=== PATIENT | male | born 1925 | race Caucasian/White ===

== ENCOUNTER 2016-12-08 09:55 | Inpatient (IN) | payer MEDICARE, OTHER ==
[~2016-12-08] VITALS: Ht 170.2 cm; Wt 106.1 kg
[2016-12-08] VITALS (33 sets, daily range): BP systolic 10–140; BP diastolic 37–115
--- NOTE | 2016-12-08 10:07 | NUR ---
BIB [facility] FOR WEAKNESS. PATIENT IS AWAKE AND ALERT. PLACED ON A MONITOR. MD AT BEDSIDE FOR EVAL.
--- NOTE | 2016-12-08 10:13 | NUR ---
PT WAS SENT TO [facility] FROM [facility] WITHOUT PT'S HOME MEDICATION LIST. [facility] WAS CONTACTED BY DIANA BAIG TO PROVIDE PT'S HOME MEDICTION LIST. WAS UNABLE TO CONTACT [facility] NURSES. MESSAGE WAS LEFT WITH [facility] FAX NUMBER AND REQUEST TO FAX PT'S MEDICATION LIST.
[2016-12-08 10:30] LABS: BASOPHILS # (AUTO) 0.1 K/uL (0.0-8.0); BASOPHILS % (AUTO) 0.5 % (0.0-2.0); EOSINOPHILS % (AUTO) 0.2 % (0.0-7.0); HEMATOCRIT 39.4 % (40-50); HEMOGLOBIN 13.5 G/DL (14.0-18.0); LYMPHOCYTES # (AUTO) 0.9 K/UL (0.8-4.8); LYMPHOCYTES % (AUTO) 4.6 % (20.5-51.5); MEAN CORPUSCULAR HEMOGLOBIN 33.1 UUG (27.0-31.0); MEAN CORPUSCULAR HGB CONC 34 g/dL (32.0-37.0); MONOCYTES # (AUTO) 0.4 K/UL (0.1-1.30); NEUTROPHILS # (AUTO) 17.8 K/UL (1.8-8.9); NEUTROPHILS % (AUTO) 92.7 % (38.5-71.5); PLATELET COUNT (AUTO) 183 K/UL (150-450); RED BLOOD CELL COUNT(AUTO) 4.07 MIL/UL (4.7-6.1); WHITE BLOOD COUNT (AUTO) 19.2 K/UL (4.0-11.2)
[2016-12-08 10:41] LABS: CARBON DIOXIDE 32 mmol/L (21-32); CHLORIDE 95 mmol/L (98-107); CREATININE 1.2 mg/dL (0.6-1.3); GLUCOSE 114 mg/dL (74-106); POTASSIUM 4.6 mmol/L (3.5-5.1); UREA NITROGEN, BLOOD 23 mg/dL (7-18)
[2016-12-08 10:47] LABS: ALANINE AMINOTRANSFERASE 25 U/L (16-63); ALKALINE PHOSPHATASE 94 U/L (50-136); ASPARTATE AMINOTRANSFERASE 33 U/L (15-37); BILIRUBIN,DIRECT 0.2 mg/dL (0.0-0.2); BILIRUBIN,TOTAL 0.7 mg/dL (0.2-1.0)
[2016-12-08] MEDS ORDERED: ATEN25TA PO (11:06)
[2016-12-08] MEDS ORDERED: ASPI-605 PO (11:06)
[2016-12-08] MEDS ORDERED: [UNRECOGNIZED DRUG - CODE] PO (11:06)
[2016-12-08] MEDS ORDERED: GABA-534 PO (11:06)
[2016-12-08] MEDS ORDERED: BENA40TA2 PO (11:06)
[2016-12-08] MEDS ORDERED: LOVA10TA PO (11:06)
[2016-12-08] MEDS ORDERED: DOCU100T9 PO (11:06)
--- NOTE | 2016-12-08 11:31 | NUR ---
CLIENT SERVICE MANAGER STATES PATIENT WAS UNABLE TO COMPLETE CT SCAN. PATEINT WAS ALSO UNABLE TO PROVIDE URINE SAMPLE. NOTIFIED.
[2016-12-08] MEDS ORDERED: ASPIRIN 325 MG TABLET PO ONE (11:45)
[2016-12-08] MEDS ORDERED: ASPIRIN 81 MG TAB.CHEW ONE (12:02)
--- NOTE | 2016-12-08 12:16 | NUR ---
REPORT GIVEN TO HOMER RN. PT AND FAMILY AWARE OF PENDING ADMISSION.
[2016-12-08] MEDS ORDERED: ONDANSETRON IV *ER 4 MG/2 ML VIAL IV ONE (13:00)
[2016-12-08] MEDS ORDERED: HEPARIN/D5W DRIP 500 ML IV PRN (14:30)
[2016-12-08] MEDS ORDERED: ONDANSETRON 4 MG/2 ML VIAL IV PRN (14:30)
[2016-12-08] MEDS ORDERED: ACETAMINOPHEN 325 MG TABLET PO PRN (14:30)
[2016-12-08] MEDS ORDERED: NITROGLYCERIN 0.4 MG/TAB BOTTLE SL PRN (14:30)
[2016-12-08] MEDS ORDERED: MORPHINE SULFATE 2 MG/1 ML DISP.SYRIN IV PRN ×2 (14:30)
[2016-12-08] MEDS ORDERED: VANCOMYCIN IV 200 ML IV ONE (14:30)
[2016-12-08] MEDS ORDERED: LORAZEPAM 0.5 MG TABLET PO PRN (14:30)
--- NOTE | 2016-12-08 14:48 | NUR ---
Clinical Pharmacy Note: Vancomycin Pharmacy to Dose Subjective: To start vancomycin in this 89 y/o male for sepsis. Objective: height 60'' weight 185 lb BUN 23 Scr 1.2 Wbc 19.2 Temp 98 Assessment/Plan: Due to advanced age & elevated srcr, will dose by fall off level. Will give vancomycin 1250mg IVPB x1 today at 1530. Pharmacy shall check srcr in am & decide when to order next random level for further dosing. Will continue to follow.
[2016-12-08 15:30] LABS: BILIRUBIN,DIRECT 0.2 mg/dL (0.0-0.2); BILIRUBIN,TOTAL 0.7 mg/dL (0.2-1.0); TOTAL PROTEIN, SERUM 6.9 g/dL (6.4-8.2)
[2016-12-08] MEDS ORDERED: VANCOMYCIN IV 1,250 MG in IV DEXTROSE 5% 500 ML IV ONE (15:30)
--- NOTE | 2016-12-08 15:35 | NUR ---
a call to Dr. Avery and informed her of continuous low blood pressure orders for levophed received.
[2016-12-08] MEDS ORDERED: NOREPINEPHRINE BITARTRATE 8 MG in IV DEXTROSE 5% 500 ML IV PRN (15:45)
[2016-12-08] MEDS: PIPERACILLIN/TAZOBACTAM/D5W 3.375 G in PREMIXED 1 EACH IV SCH ×2 (15:51→21:22)
[2016-12-08 15:55] LABS: *BILIRUBIN,URIN NEGATIVE (NEGATIVE); *BLOOD, URINE 3+ (NEGATIVE); *CLARITY,URINE CLOUDY (CLEAR); *COLOR,URINE YELLOW (YELLOW); *KETONES,URINE NEGATIVE (NEGATIVE); *PROTEIN,URINE 1+ (NEGATIVE); *UROBILINOGEN,URINE 0.2 E.U./dl (NORMAL); LEUKOCYTE ESTERASE ,URINE 3+ (NEGATIVE); NITRITE, URINE POSITIVE (NEGATIVE); PH,URINE 7.5 (5.0-8.0); UGLUCOSE NEGATIVE (NEGATIVE)
--- NOTE | 2016-12-08 16:00 | NUR ---
Dr. Mancilla cardiology services in the unit to examine patient, orders to dcd heparin, and PICC line orders received.
[2016-12-08] MEDS: IV NS 1000 ML 1,000 ML IV PRN (16:24)
[2016-12-08 16:29] LABS: IRON, SERUM 25 ug/dL (50-175)
[2016-12-08 16:41] LABS: BACTERIA,URINE MANY /HPF (NONE SEEN); RBC,URINE 20-50 /HPF (0-3); SQUAMOUS EPITHELIAL CELL,UR FEW /HPF (NONE SEEN); WBC,URINE 20-50 /HPF (0-3)
[2016-12-08 16:42] LABS: MUCUS,URINE MODERATE /LPF (0-FEW)
[2016-12-08] MEDS: DOCUSATE SODIUM 100 MG CAPSULE PO SCH (17:00)
[2016-12-08] MEDS: GABAPENTIN 300 MG CAPSULE PO SCH (17:00)
[2016-12-08] MEDS ORDERED: IV NORMAL SALINE 500 ML IV ONE (18:15)
--- NOTE | 2016-12-08 19:00 | NUR ---
patient daughter Florina at bedside visiting patient updated with patient status ,condition and plan of care and treatment.daughters questions answered.hospital telephone number given to daughter .
--- NOTE | 2016-12-08 20:00 | NUR ---
patient in bed alert to name verbally responsive and able to follow simple commands . patient alert x2 patient denies chest pain .able to moved upper and lower extremities but very weak.norepinephrine drip in progress to keep sbp >90 mm/hg .tolerating oxygen via nasal cannula at 2 liters /min .no sob noted. Moses to bedside drain with clear yellowish urine.continue to monitor vitals and levels of comfort.
--- NOTE | 2016-12-08 20:25 | NUR ---
called patients daughter and spoked with Florina porras obtained phone consent for picc line insertion .notified nursing electric motor repair supervisor and picc line nurse is coming between 2300 to 0000.
[2016-12-08] MEDS: CALCIUM CARB/VITAMIN D 600-400 MG TABLET PO SCH (21:00)
--- NOTE | 2016-12-08 21:00 | NUR ---
patient turned and reposition but refusing, advised appropriately.skin care provided. Addendum: 12/08/16 at 2308 by DONOVAN KELLER RN Amended: Links added.
[2016-12-08] MEDS: Z GUARD REMEDY PASTE 57 GM TUBE TOP SCH (21:25)
[2016-12-08] MEDS: SIMVASTATIN 20 MG TABLET PO SCH (21:25)
--- NOTE | 2016-12-08 22:00 | NUR ---
levophed drip titrated accordingly to keep sbp >90 mm/hg. Addendum: 12/08/16 at 2300 by DONOVAN KELLER RN Amended: Links added.
--- NOTE | 2016-12-08 23:03 | NUR ---
still awaiting for PICC insertion as per supervisor tower picc line nurse is coming between 2300 to 0000. Addendum: 12/08/16 at 2304 by DONOVAN KELLER RN Amended: Links added.
--- NOTE | 2016-12-08 23:50 | NUR ---
ESTEBAN BARROS RN at beside inserted right upper extremity picc line 3 lumen ivf access .
[2016-12-09] VITALS (47 sets, daily range): BP systolic 91–169; BP diastolic 33–94
--- NOTE | 2016-12-09 | NUR ---
turned and reposition patient ,explained the importance of turning for skin breakdown prevention. Addendum: 12/09/16 at 0038 by DONOVAN KELLER RN Amended: Links added.
--- NOTE | 2016-12-09 00:15 | NUR ---
pt verbalized he was hungry and want something to eat .patient able to swallow tolerated chocolate pudding .aspiration precaution observed head of the head up . Addendum: 12/09/16 at 0038 by DONOVAN KELLER RN Amended: Links added.
[2016-12-09] MEDS: IV NS 1000 ML 1,000 ML IV PRN ×2 (03:40→14:18)
[2016-12-09 05:01] LABS: BASOPHILS % (AUTO) 0.1 % (0.0-2.0); EOSINOPHILS % (AUTO) 0.1 % (0.0-7.0); HEMATOCRIT 30.8 % (40-50); HEMOGLOBIN 10.8 G/DL (14.0-18.0); LYMPHOCYTES # (AUTO) 0.8 K/UL (0.8-4.8); MEAN CORPUSCULAR HEMOGLOBIN 33.9 UUG (27.0-31.0); MEAN CORPUSCULAR HGB CONC 35 g/dL (32.0-37.0); MEAN CORPUSCULAR VOLUME 96.6 FL (82.0-92.0); MONOCYTES # (AUTO) 0.7 K/UL (0.1-1.30); MONOCYTES % (AUTO) 4.1 % (0.0-11.0); NEUTROPHILS # (AUTO) 14.6 K/UL (1.8-8.9); NEUTROPHILS % (AUTO) 90.7 % (38.5-71.5); PLATELET COUNT (AUTO) 153 K/UL (150-450); RED BLOOD CELL COUNT(AUTO) 3.19 MIL/UL (4.7-6.1); WHITE BLOOD COUNT (AUTO) 16.1 K/UL (4.0-11.2)
[2016-12-09] MEDS: PIPERACILLIN/TAZOBACTAM/D5W 3.375 G in PREMIXED 1 EACH IV SCH ×3 (05:09→22:25)
[2016-12-09 05:25] LABS: AMYLASE 51 U/L (25-115); CARBON DIOXIDE 31 mmol/L (21-32); CHLORIDE 98 mmol/L (98-107); CHOLESTEROL 133 mg/dL (<200); CREATININE 1.3 mg/dL (0.6-1.3); GLUCOSE 114 mg/dL (74-106); HDL CHOLESTEROL 69 mg/dL (40-60); MAGNESIUM 1.7 mg/dL (1.8-2.4); PHOSPHOROUS 3.6 mg/dL (2.5-4.9); POTASSIUM 4.2 mmol/L (3.5-5.1); TRIGLYCERIDES 41 MG/DL (30-150); UREA NITROGEN, BLOOD 21 mg/dL (7-18)
[2016-12-09 05:26] LABS: LIPASE 73 U/L (73-393)
--- NOTE | 2016-12-09 05:30 | NUR ---
am care done ,changed soiled linens and gown ,skin care done ,Moses care and oral care done .turned and reposition . hob up .elevated upper and lower bilateral extremities with pillow .off loaded bilateral heels ,scds used .
--- NOTE | 2016-12-09 06:20 | NUR ---
po medication given and patient tolerated medication with water .
[2016-12-09] MEDS: PANTOPRAZOLE SODIUM 40 MG TABLET.DR PO SCH (06:23)
[2016-12-09] MEDS: GABAPENTIN 300 MG CAPSULE PO SCH ×3 (08:50→16:54)
[2016-12-09] MEDS: DOCUSATE SODIUM 100 MG CAPSULE PO SCH ×4 (08:51→16:55)
[2016-12-09] MEDS: ASPIRIN EC 81 MG TABLET.DR PO SCH (08:51)
[2016-12-09] MEDS: Z GUARD REMEDY PASTE 57 GM TUBE TOP SCH ×2 (08:52→20:21)
[2016-12-09] MEDS: CALCIUM CARB/VITAMIN D 600-400 MG TABLET PO SCH ×2 (09:02→20:19)
--- NOTE | 2016-12-09 09:05 | NUR ---
Dr. Avery in the unit to examine patient, report given see orders.
[2016-12-09] MEDS: MAGNESIUM SULFATE/D5W 100 ML IV SCH ×2 (12:34→13:53)
--- NOTE | 2016-12-09 17:15 | NUR ---
Clinical Pharmacy Note: Vancomycin Pharmacy to Dose Subjective: To start vancomycin in this 89 y/o male for sepsis. Objective: height 60'' weight 185 lb BUN 21 Scr 1.3 Wbc 16.1 Temp 99.2 random: 6.5 (taken at 1400, result delayed d/t machine malfunction, sent out to [facility] for result) Assessment/Plan: Due to advanced age & elevated srcr, will continue to dose by fall off level. Will give vancomycin 1250mg IVPB x1 today at 1730. Pharmacy shall check srcr in am & decide when to order next random level for further dosing. Will continue to follow.
[2016-12-09] MEDS ORDERED: VANCOMYCIN IV 1,250 MG in IV DEXTROSE 5% 500 ML IV ONE (17:30)
--- NOTE | 2016-12-09 20:00 | NUR ---
received patient in bed alert oriented x2 needs reorientation .off oxygen no respiratory distress noted breathing even and unlabored .denies pain and no discomfort .hob up.patient off norepinephrine drip continue to monitor vital and levels of comfort . Moses patent and to bedside drain with adequate yellowish urine .call zuleta placed with in reach and advised to call for assistance . Addendum: 12/09/16 at 2140 by DONOVAN KELLER RN Amended: Links added.
--- NOTE | 2016-12-09 20:00 | NUR ---
on room air no respiratory distress noted no sob. Addendum: 12/10/16 at 0201 by DONOVAN KELLER RN Amended: Links added.
--- NOTE | 2016-12-09 20:05 | NUR ---
DR: AIME came and visited patient updated with patient status and condition .MD made aware patient is off norepinephrine drip with orders for prn hydralazine for SBP >160 mm/hg .
[2016-12-09] MEDS ORDERED: hydrALAZINE HCL 20 MG/1 ML VIAL IV PRN (20:15)
[2016-12-09] MEDS: SIMVASTATIN 20 MG TABLET PO SCH (20:20)
--- NOTE | 2016-12-09 20:30 | NUR ---
pm care done . patient had x1 bowel movement soft moderate in amount brownish in color . send stool for OB .perineal care done and z guard applied to sacral area .changed soiled linens .turned and reposition .elelvayed bilateral upper and lower extremities with pillows .
[2016-12-09] MEDS: BENZOCAINE/MENTH/CETYLPYRD LOZENGE MM PRN (20:51)
[2016-12-09 21:33] LABS: *OCCULT BLOOD STOOL NEGATIVE (NEGATIVE)
--- NOTE | 2016-12-09 22:00 | NUR ---
patient off norepinephrine drip continue to monitor vital signs . Addendum: 12/09/16 at 2326 by DONOVAN KELLER RN Amended: Links added.
--- NOTE | 2016-12-09 22:00 | NUR ---
patient able to swallow medication with water . aspiration precaution observed . Addendum: 12/10/16 at 0200 by DONOVAN KELLER RN Amended: Links added. Addendum: 12/10/16 at 0201 by DONOVAN KELLER RN Amended: Links added.
--- NOTE | 2016-12-09 23:00 | NUR ---
afebrimanan ,continue with antibiotic vancomycin and Zosyn see emar. Addendum: 12/09/16 at 5168 by DONOVAN KELLER RN Amended: Links added.
[2016-12-10] VITALS (23 sets, daily range): BP systolic 117–160; BP diastolic 41–133
[2016-12-10] MEDS: BENZOCAINE/MENTH/CETYLPYRD LOZENGE MM PRN ×4 (01:12→22:42)
[2016-12-10] MEDS: IV NS 1000 ML 1,000 ML IV PRN (02:28)
[2016-12-10 05:12] LABS: BASOPHILS # (AUTO) 0.2 K/uL (0.0-8.0); BASOPHILS % (AUTO) 2.7 % (0.0-2.0); EOSINOPHILS # (AUTO) 0.1 K/uL (0.0-0.7); EOSINOPHILS % (AUTO) 1.6 % (0.0-7.0); HEMOGLOBIN 10.6 G/DL (14.0-18.0); LYMPHOCYTES # (AUTO) 1.2 K/UL (0.8-4.8); LYMPHOCYTES % (AUTO) 16.3 % (20.5-51.5); MEAN CORPUSCULAR HEMOGLOBIN 32.9 UUG (27.0-31.0); MEAN CORPUSCULAR HGB CONC 34 g/dL (32.0-37.0); MEAN CORPUSCULAR VOLUME 96.4 FL (82.0-92.0); MONOCYTES # (AUTO) 0.6 K/UL (0.1-1.30); NEUTROPHILS # (AUTO) 5.1 K/UL (1.8-8.9); NEUTROPHILS % (AUTO) 71.4 % (38.5-71.5); PLATELET COUNT (AUTO) 122 K/UL (150-450); RED BLOOD CELL COUNT(AUTO) 3.21 MIL/UL (4.7-6.1); WHITE BLOOD COUNT (AUTO) 7.2 K/UL (4.0-11.2)
[2016-12-10] MEDS: PIPERACILLIN/TAZOBACTAM/D5W 3.375 G in PREMIXED 1 EACH IV SCH ×3 (05:17→22:03)
[2016-12-10 05:37] LABS: MAGNESIUM 1.9 mg/dL (1.8-2.4); PHOSPHOROUS 3.5 mg/dL (2.5-4.9)
[2016-12-10] MEDS: PANTOPRAZOLE SODIUM 40 MG TABLET.DR PO SCH (06:41)
[2016-12-10] MEDS: GABAPENTIN 300 MG CAPSULE PO SCH ×3 (09:34→19:45)
[2016-12-10] MEDS: DOCUSATE SODIUM 100 MG CAPSULE PO SCH ×3 (09:34→19:45)
[2016-12-10] MEDS: ASPIRIN EC 81 MG TABLET.DR PO SCH (09:34)
[2016-12-10] MEDS: CALCIUM CARB/VITAMIN D 600-400 MG TABLET PO SCH ×2 (09:35→23:02)
[2016-12-10] MEDS: Z GUARD REMEDY PASTE 57 GM TUBE TOP SCH ×2 (09:36→22:02)
[2016-12-10] MEDS ORDERED: VANCOMYCIN IV 1,500 MG in IV DEXTROSE 5% 500 ML IV ONE (13:00)
--- NOTE | 2016-12-10 16:46 | NUR ---
Clinical Pharmacy Note: Vancomycin Pharmacy to Dose Subjective: To continue vancomycin in this 89 y/o male for sepsis. Objective: height 60'' weight 185 lb BUN 21(12/09) Scr 1.3(12/09) Wbc 7.2 Temp 98.3 random: 13.4 (ordered today on am labs Assessment/Plan: Due to advanced age & elevated srcr, will continue to dose by fall off level. Will give vancomycin 1250mg IVPB x1 today (given at 1300)and draw random in am (ordered for tomorrow a 0600). Will continue to follow.
[2016-12-10] MEDS: CARVEDILOL 3.125 MG TABLET PO SCH (19:45)
[2016-12-10] MEDS: LACTOBACILLUS RHAMNOSUS GG 1 EACH CAPSULE PO SCH (22:02)
[2016-12-10] MEDS: SIMVASTATIN 20 MG TABLET PO SCH (22:02)
[2016-12-10] MEDS ORDERED: CALCIUM CARB/VITAMIN D 600-400 MG TABLET ONE (23:02)
[2016-12-11] VITALS (19 sets, daily range): BP systolic 100–164; BP diastolic 60–93
[2016-12-11] MEDS: IV NS 1000 ML 1,000 ML IV PRN (02:22)
[2016-12-11 05:11] LABS: BASOPHILS % (AUTO) 0.3 % (0.0-2.0); EOSINOPHILS # (AUTO) 0.2 K/uL (0.0-0.7); EOSINOPHILS % (AUTO) 2.1 % (0.0-7.0); HEMATOCRIT 34.3 % (40-50); HEMOGLOBIN 11.7 G/DL (14.0-18.0); LYMPHOCYTES # (AUTO) 1.6 K/UL (0.8-4.8); LYMPHOCYTES % (AUTO) 17.8 % (20.5-51.5); MEAN CORPUSCULAR HEMOGLOBIN 32.7 UUG (27.0-31.0); MEAN CORPUSCULAR HGB CONC 34 g/dL (32.0-37.0); MEAN CORPUSCULAR VOLUME 96.3 FL (82.0-92.0); MONOCYTES # (AUTO) 0.6 K/UL (0.1-1.30); MONOCYTES % (AUTO) 6.5 % (0.0-11.0); NEUTROPHILS # (AUTO) 6.5 K/UL (1.8-8.9); NEUTROPHILS % (AUTO) 73.3 % (38.5-71.5); PLATELET COUNT (AUTO) 139 K/UL (150-450); RED BLOOD CELL COUNT(AUTO) 3.56 MIL/UL (4.7-6.1); WHITE BLOOD COUNT (AUTO) 8.9 K/UL (4.0-11.2)
[2016-12-11 05:23] LABS: CARBON DIOXIDE 29 mmol/L (21-32); CHLORIDE 101 mmol/L (98-107); CREATININE 1.2 mg/dL (0.6-1.3); GLUCOSE 103 mg/dL (74-106); MAGNESIUM 1.7 mg/dL (1.8-2.4); PHOSPHOROUS 3.3 mg/dL (2.5-4.9); UREA NITROGEN, BLOOD 14 mg/dL (7-18)
[2016-12-11] MEDS: PIPERACILLIN/TAZOBACTAM/D5W 3.375 G in PREMIXED 1 EACH IV SCH ×3 (06:23→21:32)
[2016-12-11] MEDS: PANTOPRAZOLE SODIUM 40 MG TABLET.DR PO SCH (06:23)
--- NOTE | 2016-12-11 08:00 | NUR ---
Pt. was assisted with eating breakfast,watching TV,no s/s of acute distress.
[2016-12-11] MEDS: ASPIRIN EC 81 MG TABLET.DR PO SCH (08:41)
[2016-12-11] MEDS: LACTOBACILLUS RHAMNOSUS GG 1 EACH CAPSULE PO SCH ×2 (08:41→21:31)
[2016-12-11] MEDS: BENAZEPRIL HCL 5 MG TABLET PO SCH (08:42)
[2016-12-11] MEDS: DOCUSATE SODIUM 100 MG CAPSULE PO SCH ×3 (08:42→18:01)
[2016-12-11] MEDS: GABAPENTIN 300 MG CAPSULE PO SCH ×3 (08:42→18:01)
[2016-12-11] MEDS: Z GUARD REMEDY PASTE 57 GM TUBE TOP SCH ×2 (08:43→21:31)
[2016-12-11] MEDS: CARVEDILOL 3.125 MG TABLET PO SCH ×2 (08:45→18:10)
[2016-12-11] MEDS: CALCIUM CARB/VITAMIN D 600-400 MG TABLET PO SCH ×2 (08:50→21:31)
[2016-12-11] MEDS ORDERED: VANCOMYCIN IV 1,500 MG in IV DEXTROSE 5% 500 ML IV ONE (10:00)
--- NOTE | 2016-12-11 11:15 | NUR ---
Pt.was seen by Gena Klein with new orders.
[2016-12-11] MEDS: MAGNESIUM SULFATE/D5W 100 ML IV SCH ×2 (12:43→13:22)
--- NOTE | 2016-12-11 13:00 | NUR ---
Pt. sleeping,no s/s of distress.
--- NOTE | 2016-12-11 13:49 | NUR ---
Clinical Pharmacy Note: Vancomycin Pharmacy to Dose Subjective: To continue vancomycin in this 89 y/o male for sepsis. Objective: height 60'' weight 185 lb BUN 14 Scr 1.2 Wbc 8.9 Temp 99.1 random: 15.8 (ordered today on am labs) Assessment/Plan: Due to advanced age & elevated srcr, will continue to dose by fall off level. Gave vancomycin 1500mg IVPB x1 today at 1000 based on random and draw random in am (ordered for tomorrow a 0600). Will continue to follow.
--- NOTE | 2016-12-11 16:00 | NUR ---
Family members at bedside,updated with pt.condition and plan of care.
--- NOTE | 2016-12-11 16:45 | NUR ---
SBAR report given to Benjy/RN,pt.was tx to TELE under soaking room operator,no s/s of distress or SOB,denies any pain @ time.
--- NOTE | 2016-12-11 17:00 | NUR ---
Report received from Compa in CCU patient was transferred to room 204, air mattress set up, all needs met. No evidence of distress noted, bed in low position side rails up x2, SCD's on.
[2016-12-11] MEDS: SIMVASTATIN 20 MG TABLET PO SCH (21:31)
[2016-12-12] VITALS: BP 112/60
[2016-12-12 04:00] VITALS: BP 124/69
[2016-12-12] MEDS: PIPERACILLIN/TAZOBACTAM/D5W 3.375 G in PREMIXED 1 EACH IV SCH ×2 (05:46→13:22)
[2016-12-12 06:43] LABS: BASOPHILS % (AUTO) 0.4 % (0.0-2.0); EOSINOPHILS # (AUTO) 0.3 K/uL (0.0-0.7); EOSINOPHILS % (AUTO) 4.4 % (0.0-7.0); HEMATOCRIT 33.7 % (40-50); HEMOGLOBIN 11.3 G/DL (14.0-18.0); LYMPHOCYTES # (AUTO) 1.6 K/UL (0.8-4.8); LYMPHOCYTES % (AUTO) 23.3 % (20.5-51.5); MEAN CORPUSCULAR HEMOGLOBIN 32.4 UUG (27.0-31.0); MEAN CORPUSCULAR HGB CONC 33 g/dL (32.0-37.0); MONOCYTES # (AUTO) 0.6 K/UL (0.1-1.30); MONOCYTES % (AUTO) 9.4 % (0.0-11.0); NEUTROPHILS # (AUTO) 4.4 K/UL (1.8-8.9); NEUTROPHILS % (AUTO) 62.5 % (38.5-71.5); PLATELET COUNT (AUTO) 136 K/UL (150-450); RED BLOOD CELL COUNT(AUTO) 3.47 MIL/UL (4.7-6.1); WHITE BLOOD COUNT (AUTO) 6.9 K/UL (4.0-11.2)
[2016-12-12] MEDS: PANTOPRAZOLE SODIUM 40 MG TABLET.DR PO SCH (06:57)
[2016-12-12 07:26] LABS: CARBON DIOXIDE 32 mmol/L (21-32); CHLORIDE 97 mmol/L (98-107); CREATININE 1.2 mg/dL (0.6-1.3); GLUCOSE 95 mg/dL (74-106); PHOSPHOROUS 3.4 mg/dL (2.5-4.9); POTASSIUM 3.6 mmol/L (3.5-5.1); UREA NITROGEN, BLOOD 14 mg/dL (7-18)
--- NOTE | 2016-12-12 08:00 | NUR ---
awake, oriented x 2, cooperative, denies of pain at this time, no shortness of breath noted, tele SR, call light within reach, explained plan of care- verbalized understanding, on first step mattress, repositioned for breakfast, bed alarm on
[2016-12-12] MEDS: BENAZEPRIL HCL 5 MG TABLET PO SCH (08:04)
[2016-12-12] MEDS: ASPIRIN EC 81 MG TABLET.DR PO SCH (08:04)
[2016-12-12] MEDS: CALCIUM CARB/VITAMIN D 600-400 MG TABLET PO SCH (08:04)
[2016-12-12] MEDS: CARVEDILOL 3.125 MG TABLET PO SCH (08:04)
[2016-12-12] MEDS: DOCUSATE SODIUM 100 MG CAPSULE PO SCH ×2 (08:04→13:22)
[2016-12-12] MEDS: LACTOBACILLUS RHAMNOSUS GG 1 EACH CAPSULE PO SCH (08:06)
[2016-12-12] MEDS: Z GUARD REMEDY PASTE 57 GM TUBE TOP SCH (08:10)
[2016-12-12] MEDS: GABAPENTIN 300 MG CAPSULE PO SCH ×2 (08:11→13:22)
--- NOTE | 2016-12-12 10:00 | NUR ---
seen by Dr Jeff dumont order for d/c snf
[2016-12-12] MEDS ORDERED: BENA5TAB2 PO (10:05)
[2016-12-12] MEDS ORDERED: Benzocaine/Menth/Cetylpyrd Cl MM (10:05)
[2016-12-12] MEDS ORDERED: CARV3.122 PO (10:05)
[2016-12-12] MEDS ORDERED: DOCU100C36 PO (10:05)
[2016-12-12] MEDS ORDERED: LEVO750T21 PO (10:05)
[2016-12-12] MEDS ORDERED: VANCOMYCIN IV 1,500 MG in IV DEXTROSE 5% 500 ML IV ONE (10:30)
[2016-12-12 11:51] VITALS: BP 137/72
--- NOTE | 2016-12-12 12:00 | NUR ---
daughter here- pt would like to go to [facility] instead- daughter spoke to and will go to [facility]
--- NOTE | 2016-12-12 13:45 | NUR ---
discharge instructions given- verbalized understanding- pt will be picked up by the [facility] transportation vehicle- pt aware
--- NOTE | 2016-12-12 14:10 | NUR ---
PICC line on the right upper arm d/cd aseptically, catheter and tip intact, no redness/swelling on site, pressure dsg applied Addendum: 12/12/16 at 1613 by ABELINO FROST RN 1410- length at 40
--- NOTE | 2016-12-12 15:00 | NUR ---
daughter here- transportation from [place] here- assisted to w/c and escorted to van in stable condition, all belongings with him
== END 2016-12-12 15:00 | DRG 871 ==
LOC: ER 09:55 → TELE 13:30 → CCU 14:30 → TELE 12-11 16:50 → MED 12-12 11:25
PROVIDERS: ADMIT Internal Medicine; ATTEND Internal Medicine
PROC: 02HV33Z Insertion of Infusion Device into Superior Vena Cava, Percutaneous Approach (ICD-10-PCS; principal; 2016-12-08)
PROC: B548ZZA Ultrasonography of Superior Vena Cava, Guidance (ICD-10-PCS; 2016-12-08)
DX: A41.9 Sepsis, unspecified organism (principal); I21.4 Non-ST elevation (NSTEMI) myocardial infarction; J69.0 Pneumonitis due to inhalation of food and vomit; R65.21 Severe sepsis with septic shock; G93.41 Metabolic encephalopathy; D68.59 Other primary thrombophilia; I95.9 Hypotension, unspecified; E87.1 Hypo-osmolality and hyponatremia; R53.2 Functional quadriplegia; I50.22 Chronic systolic (congestive) heart failure; E44.0 Moderate protein-calorie malnutrition; N39.0 Urinary tract infection, site not specified; I11.0 Hypertensive heart disease with heart failure; E78.5 Hyperlipidemia, unspecified; I25.10 Atherosclerotic heart disease of native coronary artery without angina pectoris; F03.90 Unspecified dementia, unspecified severity, without behavioral disturbance, psychotic disturbance, mood disturbance, and anxiety; I25.5 Ischemic cardiomyopathy; E86.0 Dehydration; E66.9 Obesity, unspecified; Z68.36 Body mass index [BMI] 36.0-36.9, adult; B95.7 Other staphylococcus as the cause of diseases classified elsewhere; D63.8 Anemia in other chronic diseases classified elsewhere; D50.9 Iron deficiency anemia, unspecified; Z85.46 Personal history of malignant neoplasm of prostate
CPT/HCPCS: 36415; 36569; 70030-TC; 71010; 83550; 83605; 83690; 83735; 84100; 85025; 85610; 85730; 87040; 87077; 87086; 92610; 93005; 93307; J0360; J1644; J2543; J3370; J3475; J3490; J7030; J7050; J7060

== ENCOUNTER 2017-03-20 21:55 | Emergency (ER) | payer MEDICARE, OTHER ==
[~2017-03-20] VITALS: Ht 167.6 cm; Wt 99.8 kg
[~2017-03-20 21:55] MED LIST: ASPI-605 PO; BENA5TAB2 PO; Benzocaine/Menth/Cetylpyrd Cl MM; CARV3.122 PO; DOCU100C36 PO; DOCU100T9 PO; GABA-534 PO; LEVO750T21 PO; LOVA10TA PO; [UNRECOGNIZED DRUG - CODE] PO
[2017-03-20] MEDS ORDERED: BENA20TA2 PO (22:07)
[2017-03-20] MEDS ORDERED: METO-356 PO (22:07)
--- NOTE | 2017-03-20 23:55 | NUR ---
Patient discharged to home in stable conditon. Written and verbal after care instructions given. Patient verbalizes understanding of instructions. Patient taken home by family in private vehicle. All belongings with patient.
[2017-03-21 00:03] VITALS: BP 121/74
== END 2017-03-20 23:55 | disposition home or self-care (01) ==
LOC: ER 21:58
DX: S90.02XA Contusion of left ankle, initial encounter (principal); I10 Essential (primary) hypertension; Z79.82 Long term (current) use of aspirin; Z86.73 Personal history of transient ischemic attack (TIA), and cerebral infarction without residual deficits; W01.0XXA Fall on same level from slipping, tripping and stumbling without subsequent striking against object, initial encounter; Y92.89 Other specified places as the place of occurrence of the external cause; Y93.89 Activity, other specified; Y99.8 Other external cause status
CPT/HCPCS: 73610; A4663